=== PATIENT | female | born 1995 | race Caucasian/White ===

== ENCOUNTER → 2017-03-31 | Outpatient (CLI) | payer OTHER ==
[~2017-03-31] MED LIST: CIPRO500 MG PO; CYCL10 PO; Cyclobenzaprine5 MG PO; IBUP600 PO; IBUP800 PO; Norco 5-325 Ta1 EACH PO; OXYACE5T PO; RXSULTRIDS PO; SULTRIDS PO
== END | disposition home or self-care (01) ==
LOC: LAB EV 13:42
DX: J03.90 Acute tonsillitis, unspecified (principal)
CPT/HCPCS: 87070

== ENCOUNTER → 2018-04-24 | Outpatient (CLI) | payer OTHER ==
[~2018-04-24] MED LIST changes: +Cleocin HCl300 MG PO; +LEVSOD150 PO
== END | disposition home or self-care (01) ==
LOC: LAB SHORT 14:46 → LAB 14:46
DX: Z34.80 Encounter for supervision of other normal pregnancy, unspecified trimester (principal)
CPT/HCPCS: 87081; 87653

== ENCOUNTER 2018-05-05 08:48 | Emergency (ER) | payer OTHER ==
[~2018-05-05] VITALS: Ht 160 cm; Wt 100.7 kg
[~2018-05-05 08:48] MED LIST changes: -Cleocin HCl300 MG PO; -LEVSOD150 PO
[2018-05-05] MEDS ORDERED: LEVSOD150 PO (09:02)
[2018-05-05] MEDS ORDERED: Cleocin HCl300 MG PO (09:58)
== END 2018-05-05 10:09 | disposition home or self-care (01) ==
LOC: ER 08:48
DX: O99.713 Diseases of the skin and subcutaneous tissue complicating pregnancy, third trimester (principal); L05.01 Pilonidal cyst with abscess; Z3A.36 36 weeks gestation of pregnancy; Z88.0 Allergy status to penicillin; Z79.899 Other long term (current) drug therapy; E03.9 Hypothyroidism, unspecified
CPT/HCPCS: 10061; 99282-25

== ENCOUNTER 2018-05-22 04:52 | Inpatient (IN) | payer OTHER ==
[~2018-05-22] VITALS: Ht 157.5 cm; Wt 0.1 kg
[~2018-05-22 04:52] MED LIST changes: +Cleocin HCl300 MG PO; +LEVSOD150 PO
[2018-05-22 06:03] LABS: BASOPHILS ABSOLUTE AUTO 0.02 K/mm3 (0.00-0.23); BASOPHILS PERCENT AUTO 0 % (0-2); EOSINOPHILS ABSOLUTE AUTO 0.09 K/mm3 (0.00-0.68); EOSINOPHILS PERCENT AUTO 1 % (0-6); Hematocrit 30.4 % (33.0-51.0); Hemoglobin 9.6 g/dL (11.5-16.0); IMMATURE GRAN ABSOLUTE AUTO 0.07 K/mm3 (0.00-0.10); IMMATURE GRAN PERCENT AUTO 1 % (0-1); LYMPHOCYTES ABSOLUTE AUTO 1.95 K/mm3 (0.84-5.20); LYMPHOCYTES PERCENT AUTO 20 % (21-46); MONOCYTES ABSOLUTE AUTO 0.58 K/mm3 (0.16-1.47); MONOCYTES PERCENT AUTO 6 % (4-13); Mean Corpuscular HGB Conc 31.6 g/dL (31.5-36.5); Mean Corpuscular Volume 79 fL (80-100); Mean Platelet Volume 10.7 fL (9.1-12.4); NEUTROPHILS ABSOLUTE AUTO 6.98 K/mm3 (1.96-9.15); NEUTROPHILS PERCENT AUTO 72 % (41-73); Platelet Count 289 K/mm3 (150-400); RDW Coefficient Variation 14.6 % (11.7-14.2); RDW Standard Deviation 41.1 fL (35.1-46.3); Red Blood Cell Count 3.84 M/mm3 (3.80-5.20); White Blood Cell Count 9.69 K/mm3 (4.00-11.30)
--- NOTE | 2018-05-22 19:19 | NUR ---
REPORT GIVEN TO DEB Wilson RN. PT IN BED, NB SKIN TO SKIN
[2018-05-23 05:39] LABS: Hemoglobin 8.8 g/dL (11.5-16.0); Mean Corpuscular HGB 25.1 pg (26.0-34.0); Mean Corpuscular HGB Conc 31.4 g/dL (31.5-36.5); Mean Corpuscular Volume 80 fL (80-100); Mean Platelet Volume 10.5 fL (9.1-12.4); Platelet Count 280 K/mm3 (150-400); RDW Coefficient Variation 14.6 % (11.7-14.2); RDW Standard Deviation 42.5 fL (35.1-46.3); Red Blood Cell Count 3.51 M/mm3 (3.80-5.20); White Blood Cell Count 18.43 K/mm3 (4.00-11.30)
--- NOTE | 2018-05-23 07:06 | NUR ---
assumed care of pt, pt is sleeping, introdued myself to SO that woke up when door opened, he then turned back over to sleep. baby sleeping in crib
--- NOTE | 2018-05-23 08:45 | NUR ---
REPT FROM Blade SINGLETARY RN TO ASSUME CARE OF PATIENT. ASSESSMENT WNL, PT SLEEPING AWAKENS EASILY STATES NB IS BREAST FEEDING WELL HAS VOIDED AND STOOLED SEVERAL TIMES, DENIES PAIN OR DISCOMFORT AT THIS TIME.
[2018-05-23] MEDS ORDERED: IBUP800 PO (09:36)
--- NOTE | 2018-05-23 10:53 | NUR ---
REPT BACK TO Blade SINGLETARY RN, STABLE PT CARING FOR SELF AND NB WELL PLANS FOR D/C THIS EVENING
--- NOTE | 2018-05-23 12:20 | NUR ---
ASSUMED CARE FOR RN FILEMON
--- NOTE | 2018-05-23 12:50 | NUR ---
VANESA TERRY RN REASSUMED CARE
--- NOTE | 2018-05-23 19:51 | NUR ---
PT DC HOME WITH NB AND SO AT SIDE, ESCORTED TO VEHICLE BY RN.
== END 2018-05-23 19:50 | disposition home or self-care (01) | DRG 807 ==
LOC: OBS 04:52 → BC 05:17 → OBS 05:28 → BC 05:34
PROVIDERS: ADMIT Obstetrics & Gynecology
PROC: 10E0XZZ Delivery of Products of Conception, External Approach (ICD-10-PCS; principal; 2018-05-22)
PROC: 10907ZC Drainage of Amniotic Fluid, Therapeutic from Products of Conception, Via Natural or Artificial Opening (ICD-10-PCS; 2018-05-22)
PROC: 3E033VJ Introduction of Other Hormone into Peripheral Vein, Percutaneous Approach (ICD-10-PCS; 2018-05-22)
PROC: 10H07YZ Insertion of Other Device into Products of Conception, Via Natural or Artificial Opening (ICD-10-PCS; 2018-05-22)
PROC: 3E0R3BZ Introduction of Anesthetic Agent into Spinal Canal, Percutaneous Approach (ICD-10-PCS; 2018-05-22)
DX: O80 Encounter for full-term uncomplicated delivery (principal); Z37.0 Single live birth; Z3A.39 39 weeks gestation of pregnancy; Z88.0 Allergy status to penicillin
CPT/HCPCS: 36415; 51702; 84443; 85025; 85027; J1885; J2590; J7120

== ENCOUNTER 2018-08-17 12:42 | Day surgery (SDC) | payer OTHER ==
[~2018-08-17] VITALS: Ht 157.5 cm; Wt 195.4 kg
[~2018-08-17 12:42] MED LIST changes: -LEVSOD150 PO; +TIROSINT200 MCG PO
--- NOTE | 2018-08-17 14:29 | NUR ---
08/17/18 1429 Herring,Quin L <50 ML URINE OUTPUT
== END 2018-08-17 15:39 | disposition home or self-care (01) ==
LOC: ORSCSDS 12:42
PROVIDERS: Obstetrics & Gynecology
PROC: 0UB74ZZ Excision of Bilateral Fallopian Tubes, Percutaneous Endoscopic Approach (ICD-10-PCS; principal; 2018-08-17 14:00)
DX: Z30.2 Encounter for sterilization (principal); E03.9 Hypothyroidism, unspecified; Z79.899 Other long term (current) drug therapy
CPT/HCPCS: 88302; J0330; J1100; J1885; J2250; J2405; J2704; J3010; J7120

== ENCOUNTER 2020-12-23 20:01 | Emergency (ER) | payer OTHER ==
[~2020-12-23] VITALS: Ht 157.5 cm; Wt 98.0 kg
[2020-12-23 21:17] LABS: Source, Urine Clean Catch
[2020-12-23 21:20] LABS: Appearance, Urine Bloody (Clear); Bilirubin, Urine Neg (Neg); Blood, Urine 5+ (Neg); Color, Urine Brown (P-Yellow); Glucose Qualitative, Urine Neg (Neg); Ketones, Urine 1+ (Neg); Leukocyte Esterase, Urine Neg (Neg); Nitrite, Urine Neg (Neg); Protein, Urine 4+ (Neg); Urobilinogen, Urine NORM (Normal)
[2020-12-23 21:33] LABS: Bacteria Not Seen /hpf; Red Blood Cells, Urine TNTC /hpf (0-2); Squamous Epithelial Cells Not Seen /hpf (Few); White Blood Cells, Urine 0-2 /hpf (0-5)
[2020-12-23] MEDS ORDERED: Prednisone20 MG PO (21:47)
== END 2020-12-23 21:54 | disposition home or self-care (01) ==
LOC: ER 20:01
PROVIDERS: Physician Assistant
DX: L23.7 Allergic contact dermatitis due to plants, except food (principal); Z88.0 Allergy status to penicillin
CPT/HCPCS: 81001; 99283